=== PATIENT | female | born 1960 | race African-American/Black ===

== ENCOUNTER 2016-09-15 16:56 | Emergency (ER) | payer OTHER ==
[2016-09-15 17:05] VITALS: BP 139/80
[2016-09-15] MEDS ORDERED: OXYCODONE/APAP 5/325 TABLET. PO ONE (17:45)
[2016-09-15] MEDS ORDERED: OXYC-323 PO (18:38)
--- NOTE | 2016-09-15 18:38 | PHYS DOC ---
Past Medical History Past Medical History: Diabetes-Type II, Hypertension Past Surgical History: Hysterectomy Smoking: Less than 1pk/day Alcohol Use: None Drug Use: None Adult General Chief Complaint Chief Complaint: SHOULDER INJURY HPI HPI Patient is a 55 year old female who presents with atraumatic left shoulder pain for one week. She states the pain is worse with movement. She denies any chest pain or shortness of breath. She has tried applying ice without relief of her pain. She takes naproxen daily for her shoulder pain. She also takes [place] 7.5 mg for chronic pain. She ran out of this medication today. Patient has had multiple surgeries on the left shoulder for rotator cuff injuries. She has chronic pain in the shoulder, but states that it has been worse over the last week. She has chronically decreased range of motion in the shoulder as a result of ligamentous laxity. Her PCP is Dr. Shea Velazco. She does not have an orthopedic doctor currently. Review of Systems Review of Systems Constitutional: Denies fever or chills. [] Respiratory: Denies cough or shortness of breath. [] Cardiovascular: Denies chest pain, palpitations or edema. [] Musculoskeletal: Denies back pain or neck pain. Reports left shoulder pain. Integument: Denies rash or skin lesions. [] Neurologic: Denies headache, focal weakness or sensory changes. [] All systems reviewed and negative unless otherwise stated in the HPI. Current Medications Current Medications Current Medications Medications (Trade) Dose Ordered Sig/Yeni Start Time Stop Time Status Last Admin Dose Admin Oxycodone/ Acetaminophen (Percocet 5/325) 1 tab 1X ONCE 09/15/16 17:45 09/15/16 17:46 DC 09/15/16 17:46 1 TAB Allergies Allergies Allergies Coded Allergies Type Severity Reaction Last Updated Verified No Known Drug Allergies 09/15/16 No Physical Exam Physical Exam Constitutional: Well developed, well nourished, no acute distress, non-toxic appearance. [] HENT: Normocephalic, atraumatic, oropharynx moist. [] Eyes: PERRLA, EOMI, conjunctiva normal, no discharge. [] Neck: Normal range of motion, no midline or paraspinal tenderness, supple, no stridor. [] Cardiovascular: Heart rate regular rhythm, no murmur. [] Lungs & Thorax: Bilateral breath sounds clear to auscultation without wheezes, rales, or rhonchi. [] Skin: Warm, dry, no erythema, no rash. [] Back: No midline tenderness, no CVA tenderness. [] Extremities: Left shoulder tenderness over the clavicle, A/C joint, and proximal humerus, ROM significantly decreased due to pain, no edema. Passive ROM allowed to not quite 90 of abduction of the left shoulder. 2+ radial and ulnar pulses. Less than 2 second capillary refill in the fingers. Light touch sensation intact distally in the fingers. Full range of motion and no tenderness to palpation of the elbow, forearm, wrist, hand, or fingers. Neurologic: Alert and oriented X 3, normal motor function, normal sensory function, no focal deficits noted. [] Psychologic: Affect normal, judgement normal, mood normal. [] Current Patient Data Vital Signs Vital Signs Date Time Temp Pulse Resp B/P Pulse Ox O2 Delivery O2 Flow Rate FiO2 09/15/16 17:05 97.5 105 20 100 Room Air 97.5 EKG EKG [] Radiology/Procedures Radiology/Procedures Three-view x-ray of the left shoulder reviewed and interpreted by myself with Dr. Garrison. There are no acute fractures or dislocations noted. Course & Med Decision Making Course & Med Decision Making Pertinent Labs and Imaging studies reviewed. (See chart for details) [] Dragon Disclaimer Dragon Disclaimer This electronic medical record was generated, in whole or in part, using a voice recognition dictation system. Departure Departure Impression: Primary Impression: Shoulder pain, left Disposition: 01 HOME, SELF-CARE Condition: STABLE Referrals: SHEA VELAZCO MD (PCP) RITO MAURER II, MD Patient Instructions: Shoulder Pain, [id number] Additional Instructions: Your x-ray does not show any broken bones or dislocations. Please continue to take your home naproxen to help with inflammation. Please take the prescribed pain medication as directed. Do not drive or operate heavy machinery while taking pain medication. Please follow-up with the orthopedic doctor listed below for your ongoing shoulder pain. Return to emergency department if you have any new or concerning symptoms. Scripts Oxycodone/Apap 5-325 (Percocet 5-325 Mg Tablet)1 Each Tablet1 Tab PO PRN Q6HRS PRN PAIN #20 TAB Prov:MARGAUX MILLER 09/15/16 Problem Qualifiers Primary Impression: Shoulder pain, left Chronicity: chronic Qualified Code: M25.512 - Pain in left shoulder MARGAUX MILLER Sep 15, 2016 18:38
--- NOTE | 2016-09-16 09:04 | RAD ---
Exam performed:3 views left shoulder Indication:Atraumatic left shoulder pain history of multiple surgeries Date of service:09/15/16. Comparison:None available Findings :AP radiographs of the shoulder in internal and external rotation as well as a Y-view reveal the osseous structures to be intact and well aligned. The joint space is well-preserved. The articular margins are smooth. Impression: Radiographically normal shoulder.
== END 2016-09-15 18:41 | disposition home or self-care (01) ==
LOC: ER 16:56
DX: M25.512 Pain in left shoulder (principal); E11.9 Type 2 diabetes mellitus without complications; I10 Essential (primary) hypertension; F17.200 Nicotine dependence, unspecified, uncomplicated; Z90.710 Acquired absence of both cervix and uterus
CPT/HCPCS: 73030; 99284

== ENCOUNTER → 2017-08-23 | Outpatient (CLI) | payer OTHER | END | disposition home or self-care (01) | LOC: PNCL 09:02 | DX: M51.36 Other intervertebral disc degeneration, lumbar region (principal); I10 Essential (primary) hypertension; E11.9 Type 2 diabetes mellitus without complications; M79.605 Pain in left leg; M79.604 Pain in right leg | CPT/HCPCS: G0463 ==

== ENCOUNTER → 2017-08-27 | Outpatient (CLI) | payer OTHER | END | disposition home or self-care (01) | LOC: MRI 08:57 | DX: M47.26 Other spondylosis with radiculopathy, lumbar region (principal) | CPT/HCPCS: 72148 ==

== ENCOUNTER → 2017-09-07 | Outpatient (CLI) | payer OTHER ==
[~2017-09-07] MED LIST: IOHEXOL 180 MG/ML 10 ML VIAL.; methylPREDNISolone ACETATE 40 MG/ML VIAL.; methylPREDNISolone ACETATE 80 MG/ML VIAL.
== END | disposition home or self-care (01) ==
LOC: PNCL 10:57
DX: M51.16 Intervertebral disc disorders with radiculopathy, lumbar region (principal)
CPT/HCPCS: 62323; J1030; J1040

== ENCOUNTER → 2017-09-28 | Outpatient (CLI) | payer OTHER | END | disposition home or self-care (01) | LOC: PNCL 09:17 | DX: M51.16 Intervertebral disc disorders with radiculopathy, lumbar region (principal) | CPT/HCPCS: G0463 ==

== ENCOUNTER → 2020-10-09 | Outpatient (CLI) | payer OTHER ==
[~2020-10-09] MED LIST changes: +AMLO-186 PO; +ASPI-630 PO; +ATOR10TA60 PO; +DULA0.75 SQ; +DULO60CA6 PO; +GLIM4TAB8 PO; +HYDR-2761 PO; +INSU100V13 SQ; -IOHEXOL 180 MG/ML 10 ML VIAL.; +LOSA25TA54 PO; +METF10007 PO; +METF500T16 PO; +NAPR-683 PO; +OLME1TAB25 PO; +OXYC1TAB15 PO; +PARO20TA3 PO; +PREG200C PO; +PREG50CA91 PO; -methylPREDNISolone ACETATE 40 MG/ML VIAL.; -methylPREDNISolone ACETATE 80 MG/ML VIAL.
--- NOTE | 2020-10-09 13:18 | PDOC1 ---
INITIAL PAIN CONSULT DATE OF SERVICE: DOS: DATE: 10/09/20 TIME: 13:11 CHIEF COMPLAINT: Chief Complaint: Low back and bilateral lower extremity pain HISTORY OF PRESENT ILLNESS: 59-year-old female presents history of pain in the low back bilateral lower extremity for many years worse over the past 3 months or so without any specific injury or accident that she is aware of. Patient ports pain low back bilateral lower extremities posterior gluteus posterior thighs posterior calves to the feet and toes also anterior thighs worse on the right than the left but present bilaterally patient reports is worse with walking standing changing position especially hard with sleeping and keeping her awake from sleep most nights where she tosses and turns is not been able to have any sleep over the past 3 days by her report. Patient reports is not effective bowel bladder control does affect her ability walk fairly significantly and she is using a cane in her left hand with walking today. Patient reports she has had epidural injections in the past which were not successfully helpful and also physical therapy which is helpful temporarily. Patient reports he has had none of these recently not within the last few years patient reports her disability rating 0-10 10 being worst is a 9 with family home responsibilities and attended all other categories recreation social activity occupation sexual behavior self-care and life support activities. Patient not have any recent diagnostic studies. Patient reports she is taking Lyrica 200 mg 3 times daily as well as Cymbalta 60 mg daily without significant relief. Patient reports no loss of motor function but significant fatigability especially of the right lower extremity with walking and standing. PAST MEDICAL HISTORY: PMH: Pretension, diabetes, cigarette smoking, arthritis PREVIOUS SURGERIES: Past Surgical Hx: Hysterectomy, left shoulder surgery CURRENT MEDICATIONS: Current Meds: Active Scripts Medications Dose Route/Sig Max Daily Dose Days Date Category Trulicity (Dulaglutide) 0.75 Mg/0.5 Ml Pen.injctr 0.75 Mg SQ WEEKLY 10/09/20 Reported Levemir (Insulin Detemir) 100 Unit/1 Ml Vial 89 Unit SQ DAILY 10/09/20 Reported Atorvastatin Calcium 10 Mg Tablet 10 Mg PO HS 10/09/20 Reported Amlodipine Besylate 5 Mg Tablet 5 Mg PO DAILY 10/09/20 Reported Benicar Hct 40-25 Mg Tablet (Olmesartan/Hydrochlorothiazide) 1 Each Tablet 1 Tab PO DAILY 30 10/09/20 Reported Naprosyn (Naproxen) 500 Mg Tablet 500 Mg PO BID 10/09/20 Reported Cymbalta (Duloxetine Hcl) 60 Mg Capsule.dr 60 Mg PO DAILY 10/09/20 Reported Aspirin 81 Mg Tab.chew 1 Tab PO DAILY 10/09/20 Reported Glimepiride 4 Mg Tablet 1 Tab PO BID 10/09/20 Reported Metformin Hcl 1,000 Mg Tablet 1,000 Mg PO BIDWMEALS 10/09/20 Reported Lyrica (Pregabalin) 200 Mg Capsule 1 Cap PO TID 10/09/20 Reported ALLERGIES; Allergies: Coded Allergies: No Known Drug Allergies (Unverified , 09/15/16) FAMILY HISTORY: Family Hx: No major medical problems or conditions that she is aware of SOCIAL HISTORY: Social Hx: Patient Alcohol smokes less than a pack a day has for many years not use any illegal illicit recreational drugs is single lives locally has 1 child living at home and lives locally in [facility]. Patient reports he is currently on disability. REVIEW OF SYSTEMS: ROS: Positive for those items mentioned in history of present illness, all systems are reviewed, otherwise negative ,and are complete full and well-documented on patient's chart. PHYSICAL EXAM: VS: Blood pressure is 150/75 pulse 101 respirations 18 temperature 97.8 F height is 5 feet 5 inches weight is 217 pounds PE: PHYSICAL EXAMINATION: GENERAL: The patient is awake, alert, oriented, appropriate, very pleasant demeanor HEENT: Shows normocephalic, atraumatic. Extraocular movements are intact and symmetrical. Oral cavity: Mucous membranes moist and pink. NECK: Shows anterior throat supple without palpable lymphadenopathy noted. Swallow reflex symmetrical. CHEST: Shows normal on inspection. Breath sounds are clear bilaterally, no rales or rhonchi. HEART: Shows S1, S2 clear. No murmurs auscultated. ABDOMEN: Soft, nontender, nondistended, obese. No palpable organomegaly is noted. BACK: Shows spine grossly in the midline. Normal-appearing cervical lordotic curvature. There is increased thoracic kyphosis, some flattening of the lumbar lordotic curvature. Lumbar paraspinous muscles show symmetrical on inspection, on palpation shows some moderate tenderness diffusely throughout the upper, middle and lower distribution of the paraspinous muscles bilaterally and also into the lower thoracic paraspinous musculature, firm and tender, but without specific trigger points, without radiation of pain. The patient has good rotational motion of the lumbar spine, both laterally as well as extension and flexion without significant difficulty. . EXTREMITIES: Lower extremities show deep tendon reflexes 1+ in the patellar and tendo calcaneus tendons. Motor exam is 4 on a scale of 5 with right dorsiflexion, extension, quadriceps and hamstring flexion and 4/5 on the left. Peripheral pulses are 1+ posterior tibial. No peripheral edema is noted bilaterally. Lower extremities are warm and dry to touch, equal in color and appearance. The patient is able to stand, has difficulty trying to stand on her toes takes much effort to get up from a seated position secondary to pain is walking with a cane in her left hand with a very shuffling gait. SKIN: Shows warm and dry, good turgor. No edema. No sores, rashes or bruising throughout. IMPRESSION: Impression: 59-year-old female with long history low back and bilateral lower extremity pain with some radicular quality. Arthritis Hypertension Diabetes Plan: Options were discussed with patient including conservative medical management physical therapies interventional techniques. She would like to pursue interventional techniques also physical therapies we will enroll her in physical therapy for stretching strength exercises traction and massage techniques as well as postural retraining. Also will await preauthorization for lumbar epidural steroid injection as she has clinical radiculopathy in the bilateral lower extremities in the L4-5 dermatomal distributions. Patient continue with stretching and strengthening on her own as well, waiting for physical therapy to start we will also order MRI scan of the lumbar spine to better assess any radiculopathy etiologies. Patient is given prescription for Medrol Dosepak also with instructions side effects aware with the medication. Patient will follow up after preauthorization we will plan on translaminar approach L4-5 lumbar epidural steroid injection at that time. CAROL ANN WILKINS MD Oct 09, 2020 13:18
== END | disposition home or self-care (01) ==
LOC: PNCL 09:19
PROVIDERS: ATTEND Anesthesiology
DX: M54.5 Low back pain (principal); M79.605 Pain in left leg; M79.604 Pain in right leg; E11.9 Type 2 diabetes mellitus without complications; M19.90 Unspecified osteoarthritis, unspecified site; Z90.710 Acquired absence of both cervix and uterus; Z98.890 Other specified postprocedural states; Z79.899 Other long term (current) drug therapy; Z87.891 Personal history of nicotine dependence; Z79.82 Long term (current) use of aspirin; Z79.84 Long term (current) use of oral hypoglycemic drugs
CPT/HCPCS: G0463

== ENCOUNTER → 2020-11-04 | Outpatient (CLI) | payer OTHER, MEDICAID ==
--- NOTE | 2020-11-04 14:56 | RAD ---
MR LUMBAR SPINE WO [id number] History: Reason: BIALTERAL LUMBAR RADICULOPATHY / Spl. Instructions: / History: Technique: Multiplanar, multi sequential MR imaging was performed of the lumbar spine. Comparison: August 27, 2017 Findings: Normal vertebral body height and alignment. No fracture. Conus terminates at the normal location. No evidence of nerve root clumping. L1-L2: No canal or neuroforaminal narrowing. L2-L3: No canal or neuroforaminal narrowing. L3-L4: Small disc bulge. Mild facet arthropathy. No canal or neuroforaminal narrowing. Small left fo raminal disc protrusion. L4-L5: Small disc bulge. Moderate facet arthropathy. Bilateral facet joint effusions. No canal narro wing. No neuroforaminal narrowing. L5-S1: Small disc bulge. Moderate facet arthropathy, left greater than right. No canal narrowing. No neuroforaminal narrowing. When compared with the prior examination the degenerative findings are similar. Impression: 1. Multilevel lumbar spondylosis, similar compared to prior. Electronically signed by: Chepe Chu DO (11/04/2020 2:54 PM) [id number]
== END | disposition home or self-care (01) ==
LOC: MRI 10:50
PROVIDERS: ATTEND Anesthesiology
DX: M47.26 Other spondylosis with radiculopathy, lumbar region (principal); Z87.891 Personal history of nicotine dependence; Z79.82 Long term (current) use of aspirin; Z79.84 Long term (current) use of oral hypoglycemic drugs; Z79.899 Other long term (current) drug therapy; Z98.890 Other specified postprocedural states
CPT/HCPCS: 72148

== ENCOUNTER 2020-12-02 17:00 | Emergency (ER) | payer OTHER, MEDICAID ==
[~2020-12-02] VITALS: Ht 165.1 cm; Wt 100.0 kg
[2020-12-02 21:04] VITALS: BP 196/89
[2020-12-02] MEDS ORDERED: GABAPENTIN 300 MG CAPSULE. PO STA (21:37)
[2020-12-02] MEDS ORDERED: HYDROcodone/APAP 5/325MG 1 TAB TABLET PO ONE (21:45)
[2020-12-02] MEDS ORDERED: CYCLOBENZAPRINE 10 MG TABLET. PO ONE (21:45)
[2020-12-02] MEDS ORDERED: GABA-585 PO (22:16)
[2020-12-02] MEDS ORDERED: MELO7.5T29 PO (22:16)
[2020-12-02] MEDS ORDERED: CYCL10TA2 PO (22:16)
--- NOTE | 2020-12-02 22:16 | PHYS DOC ---
Past Medical History Past Medical History: Diabetes-Type II, Hypertension (RICKEYLEYDI Cote [employer] WORKER) Past Surgical History: Hysterectomy (RICKEYLEYDI [employer]) Smoking Status: Current Every Day Smoker Additional Information: 0.5ppd Alcohol Use: None Drug Use: None (LEYDI QUIROZ Gladys ALEXANDER) General Adult EDM: Chief Complaint: LOWER EXT PAIN HPI: HPI: Patient is a 59 year old female with a history of diabetes type 2, hypertension, neuropathy, radicular pain bilateral lower extremities, who presents today complaining of chronic bilateral feet pain, patient states symptoms of gotten worse in the last 2 days. Denies any known injury. States she has tried Tylenol with no relief. Rates the pain is moderate worse on weightbearing. (LEYDI QUIROZ APRN) Review of Systems: Review of Systems: Constitutional: Denies fever or chills. []] Musculoskeletal: Reports bilateral feet pain. Denies back pain Integument: Denies rash. [] Neurologic: Denies headache, focal weakness or sensory changes. [] Psychiatric: Denies depression or anxiety. [] (LEYDI QUIROZ [employer] WORKER) Heart Score: C/O Chest Pain: N/A Risk Factors: Risk Factors: DM, Current or recent (<one month) smoker, HTN, HLP, family his tory of CAD, obesity. Risk Scores: Score 0 - 3: 2.5% MACE over next 6 weeks - Discharge Home Score 4 - 6: 20.3% MACE over next 6 weeks - Admit for Clinical Observation Score 7 - 10: 72.7% MACE over next 6 weeks - Early Invasive Strategies (LEYDI QUIROZ APRN) Current Medications: Current Medications Medications (Trade) Dose Ordered Sig/Yeni Start Time Stop Time Status Last Admin Dose Admin Acetaminophen/ Hydrocodone Bitart (Lortab 5/325) 1 tab 1X ONCE 12/02/20 21:45 12/02/20 21:46 DC Cyclobenzaprine HCl (Flexeril) 10 mg 1X ONCE 12/02/20 21:45 12/02/20 21:46 DC Gabapentin (Neurontin) 300 mg 1X STAT 12/02/20 21:37 12/02/20 21:41 DC (LEYDI QUIROZ [employer]) Allergies: Allergies: Allergies Coded Allergies Type Severity Reaction Last Updated Verified No Known Drug Allergies 09/15/16 No (LEYDI QUIROZ APRN) Physical Exam: PE: Constitutional: Well developed, well nourished, no acute distress, non-toxic appearance. [] Abdomen: Bowel sounds normal, soft, no tenderness, no masses, no pulsatile masses. [] Skin: Warm, dry, no erythema, no rash. [] Back: No tenderness, no CVA tenderness. [] Extremities: No tenderness, no cyanosis, no clubbing, ROM intact, no edema. [] Neurologic: Alert and oriented X 3, normal motor function, normal sensory function, no focal deficits noted. [] Psychologic: Affect normal, judgement normal, mood normal. [] (LEYDI QUIROZ APRN) Current Patient Data: Vital Signs: Vital Signs Date Time Temp Pulse Resp B/P (MAP) Pulse Ox O2 Delivery O2 Flow Rate FiO2 12/02/20 21:04 98.2 102 16 196/89 (124) 99 Room Air 98.2 (LEYDI QUIROZ APRN) EKG: EKG: [] (LEYDI QUIROZ APRN) Radiology/Procedures: Radiology/Procedures: [] (LEYDI QUIROZ APRN) Course & Med Decision Making: Course & Med Decision Making Pertinent Labs and Imaging studies reviewed. (See chart for details) This is a 59-year-old female patient presenting to the ED today with exacerbation of chronic bilateral feet pain, no known injury. Discharged on gabapentin, Flexeril and meloxican which she takes for her chronic pain. Follow-up with PCP in 1 to 2 weeks (LEYDI QUIROZ APRN) Diane Disclaimer: Diane Disclaimer: This electronic medical record was generated, in whole or in part, using a voice recognition dictation system. (LEYDI QUIROZ APRN) Departure Departure Impression: Primary Impression: Neuropathy Disposition: 01 HOME / SELF CARE / HOMELESS Condition: STABLE Referrals: Elli DICKENS MD (PCP) Follow-up in 1 to 2 weeks Patient Instructions: Diabetic Neuropathy Additional Instructions: You were evaluated in the emergency room for chronic feet pain. Please follow- up with your primary care doctor in 1 to 2 weeks. Scripts Meloxicam (MELOXICAM) 7.5 Mg Tablet 1 TAB PO DAILY, #7 TAB 0 Refills Prov: LEYDI QUIROZ APRN 12/02/20 Gabapentin (GABAPENTIN ) 100 Mg Capsule 100 MG PO TID for NEUROGENIC PAIN, #30 CAP Prov: LEYDI QUIROZ APRN 12/02/20 Cyclobenzaprine Hcl (CYCLOBENZAPRINE HCL) 10 Mg Tablet 1 TAB PO TID, #30 TAB Prov: LEYDI QUIROZ APRN 12/02/20 Attending Signature Attending Signature I have participated in the care of this patient and I have reviewed and agree with all pertinent clinical information above including history, exam, and recommendations. (MONICA TORIBIO MD) LEYDI QUIROZ APRN Dec 02, 2020 22:16 MONICA TORIBIO MD Dec 03, 2020 06:05
== END 2020-12-02 22:38 | disposition home or self-care (01) ==
LOC: ER 17:00
DX: E11.40 Type 2 diabetes mellitus with diabetic neuropathy, unspecified (principal); M79.661 Pain in right lower leg; M79.662 Pain in left lower leg; I10 Essential (primary) hypertension; F17.200 Nicotine dependence, unspecified, uncomplicated; Z90.710 Acquired absence of both cervix and uterus
CPT/HCPCS: 99284